=== PATIENT | male | born 1965 | race Caucasian/White ===

== ENCOUNTER 2016-08-13 18:11 | Emergency (ER) | payer OTHER ==
[~2016-08-13] VITALS: Ht 180.3 cm; Wt 146.9 kg
[~2016-08-13 18:11] MED LIST: FLEX10TA PO; PERC5TAB12 PO; Z.0.NO CURRENT MEDS
[2016-08-13 18:20] VITALS: BP 176/92; PULSE 103; RESP 16; TEMP 100.2; O2SAT 96
[2016-08-13] MEDS ORDERED: METF1000 PO (19:49)
[2016-08-13] MEDS ORDERED: DOXY100C PO (19:49)
[2016-08-13] MEDS ORDERED: BACT800T5 PO (19:49)
[2016-08-13] MEDS ORDERED: SODIUM CHLOR 0.9% 1000 ML INJ 1,000 ML IV ONE ×2 (19:56)
[2016-08-13] MEDS ORDERED: SODIUM CHLOR 0.9% 1000 ML INJ 400 ML IV ONE (19:56)
[2016-08-13] MEDS ORDERED: VANCOMYCIN INJ 1,000 MG in SODIUM CHLOR 0.9% 250 ML INJ 250 ML IV STA (19:56)
[2016-08-13] MEDS ORDERED: PIPERACIL-TAZO 4.5 GM PREMIX 100 ML IV STA (19:56)
[2016-08-13] MEDS ORDERED: INSULIN HUMAN REGULAR 1,000 UNITS/10 ML VIAL IV PUSH ONE (20:00)
[2016-08-13] MEDS ORDERED: ACETAMINOPHEN 1000 MG/100 ML VIAL IV ONE (20:00)
[2016-08-13 20:18] LABS: AUTOMATED NEUTROPHIL # 3.9 TH/MM3 (1.8-7.7); BASOPHIL % 0.6 % (0.0-2.0); EOSINOPHIL # 0.2 TH/MM3 (0-0.4); HEMATOCRIT 40.9 % (39.0-51.0); HEMO FLAGS DIFF FINAL; LYMPH % 14.5 % (9.0-44.0); LYMPHOCYTE # 0.8 TH/MM3 (1.0-4.8); MEAN CELL VOLUME 78.8 FL (80.0-100.0); MEAN CORPUSCULAR HEMOGLOBIN 25.5 PG (27.0-34.0); MEAN CORPUSCULAR HGB CONC 32.4 % (32.0-36.0); MONO % 6.7 % (0.0-8.0); NEUT % 75.2 % (16.0-70.0); PLATELET COUNT 190 TH/MM3 (150-450); RED BLOOD COUNT 5.19 MIL/MM3 (4.50-5.90); RED CELL DISTRIBUTION WIDTH 14.1 % (11.6-17.2); WHITE BLOOD COUNT 5.3 TH/MM3 (4.0-11.0)
--- NOTE | 2016-08-13 20:23 | PD ---
HPI Chief Complaint: Skin Problem Time Seen by Provider: 20:15 Travel History International Travel<30 days: No Contact w/Intl Traveler<30days: No Traveled to known affect area: No History of Present Illness HPI The patient is a 51-year-old male that complains of low-grade fever and infection in his back for one week. The patient is a metformin controlled diabetic. On Sunday he was put on Bactrim by an urgent care center and on Sunday doxycycline was added to his regimen area he did not take his metformin for 5 days because he thought it made him nauseated. He states that the urgent care center they stuck a needle in the inflamed area of his back and did not get any pus return. The patient still has his gallbladder but denies any right upper quadrant abdominal pain. The patient has been taking over 2000 mg of Tylenol daily. PFSH Past Medical History Hx Anticoagulant Therapy: No Diabetes: Yes Patient Takes Glucophage: Yes (LAST 799) Diminished Hearing: No Respiratory: No Immunizations Current: Yes Tetanus Vaccination: < 5 Years Influenza Vaccination: No Past Surgical History Other Surgery: Yes (LT FOOT INFECTION) Social History Alcohol Use: Yes (rare) Tobacco Use: No Substance Use: No Allergies-Medications (Allergen,Severity, Reaction): Coded Allergies: No Known Allergies (Unverified , 08/13/16) Reported Meds & Prescriptions Reported Meds & Active Scripts Active Reported Metformin (Metformin HCl) 1,000 Mg Tab 1,000 Mg PO DAILY With a meal Doxycycline Hyclate 100 Mg Cap 100 Mg PO BID Review of Systems Except as stated in HPI: all other systems reviewed are Neg Physical Exam Narrative GENERAL: The patient is alert, obese, oriented 3 in slight apparent distress with his back discomfort. His vital signs show temperature 100.2, blood pressure 176/92, heart rate 103 but are otherwise normal. SKIN: Focused skin assessment warm/dry. There is an indurated area approximately 6-7 cm in diameter on the left upper back. It is indurated but not fluctuant. HEAD: Atraumatic. Normocephalic. EYES: Pupils equal and round. No scleral icterus. No injection or drainage. ENT: No nasal bleeding or discharge. Mucous membranes pink and moist. NECK: Trachea midline. No JVD. CARDIOVASCULAR: Regular rate and rhythm. No murmur appreciated. RESPIRATORY: No accessory muscle use. Clear to auscultation. Breath sounds equal bilaterally. GASTROINTESTINAL: Abdomen soft, non-tender, nondistended. Hepatic and splenic margins not palpable. No guarding or rebound is present. MUSCULOSKELETAL: No obvious deformities. No clubbing. No cyanosis. No edema. NEUROLOGICAL: Awake and alert. No obvious cranial nerve deficits. Motor grossly within normal limits. Normal speech. PSYCHIATRIC: Appropriate mood and affect; insight and judgment normal. Data Data Last Documented VS Vital Signs Date Time Temp Pulse Resp B/P Pulse Ox O2 Delivery O2 Flow Rate FiO2 08/13/16 21:33 98.6 86 20 159/73 97 08/13/16 20:54 Room Air Orders Electrocardiogram (08/13/16 19:56) Complete Blood Count With Diff (08/13/16 19:56) Comprehensive Metabolic Panel (08/13/16 19:56) Prothrombin Time / Inr (Pt) (08/13/16 19:56) Act Partial Throm Time (Ptt) (08/13/16 19:56) Lactic Acid Sepsis Protocol (08/13/16 19:56) Magnesium (Mg) (08/13/16 19:56) Urinalysis - C+S If Indicated (08/13/16 19:56) Blood Culture (08/13/16 19:56) Chest, Single Ap (08/13/16 19:56) Ecg Monitoring (08/13/16 19:56) Iv Access Insert/Monitor (08/13/16 19:56) Oximetry (08/13/16 19:56) Oxygen Administration (08/13/16 19:56) Piperacil-Tazo 4.5 Gm Premix (Zosyn 4.5 (08/13/16 19:56) Vancomycin Inj (Vancomycin Inj) (08/13/16 19:56) Sodium Chlor 0.9% 1000 Ml Inj (Ns 1000 M (08/13/16 19:56) Sodium Chlor 0.9% 1000 Ml Inj (Ns 1000 M (08/13/16 19:56) Sodium Chlor 0.9% 1000 Ml Inj (Ns 1000 M (08/13/16 19:56) Acetaminophen Inj (Ofirmev Inj) (08/13/16 20:00) Blood Glucose (08/13/16 19:56) Blood Glucose (08/13/16 20:56) Insulin Human Regular Inj (Novolin R Inj (08/13/16 20:00) Wound Culture And Gram Stain (08/13/16 20:15) Labs Laboratory Tests Test 08/13/16 08/13/16 19:58 21:47 White Blood Count 5.3 TH/MM3 Red Blood Count 5.19 MIL/MM3 Hemoglobin 13.2 GM/DL Hematocrit 40.9 % Mean Corpuscular Volume 78.8 FL Mean Corpuscular Hemoglobin 25.5 PG Mean Corpuscular Hemoglobin 32.4 % Concent Red Cell Distribution Width 14.1 % Platelet Count 190 TH/MM3 Mean Platelet Volume 7.7 FL Neutrophils (%) (Auto) 75.2 % Lymphocytes (%) (Auto) 14.5 % Monocytes (%) (Auto) 6.7 % Eosinophils (%) (Auto) 3.0 % Basophils (%) (Auto) 0.6 % Neutrophils # (Auto) 3.9 TH/MM3 Lymphocytes # (Auto) 0.8 TH/MM3 Monocytes # (Auto) 0.4 TH/MM3 Eosinophils # (Auto) 0.2 TH/MM3 Basophils # (Auto) 0.0 TH/MM3 CBC Comment DIFF FINAL Differential Comment Prothrombin Time 10.8 SEC Prothromb Time International 1.0 RATIO Ratio Activated Partial 25.2 SEC Thromboplast Time Sodium Level 131 MEQ/L Potassium Level 3.6 MEQ/L Chloride Level 94 MEQ/L Carbon Dioxide Level 26.8 MEQ/L Anion Gap 10 MEQ/L Blood Urea Nitrogen 10 MG/DL Creatinine 0.96 MG/DL Estimat Glomerular Filtration 83 ML/MIN Rate Random Glucose 346 MG/DL Lactic Acid Level 1.3 mmol/L Calcium Level 8.7 MG/DL Magnesium Level 2.4 MG/DL Total Bilirubin 2.4 MG/DL Aspartate Amino Transf 71 U/L (AST/SGOT) Alanine Aminotransferase 87 U/L (ALT/SGPT) Alkaline Phosphatase 370 U/L Total Protein 7.0 GM/DL Albumin 2.9 GM/DL Urine Color YELLOW Urine Turbidity CLEAR Urine pH 5.5 Urine Specific [place] GREATER THAN 1.035 Urine Protein NEG mg/dL Urine Glucose (UA) 1000 OR GREATER mg/dL Urine Ketones 15 mg/dL Urine Occult Blood TRACE Urine Nitrite NEG Urine Bilirubin NEG Urine Leukocyte Esterase NEG Urine RBC 0-3 /hpf Urine WBC /hpf Urine Squamous Epithelial 0-5 /hpf Cells Urine Mucus /lpf Microscopic Urinalysis Comment CULT NOT INDICATED MDM Medical Decision Making Medical Screen Exam Complete: Yes Emergency Medical Condition: Yes Medical Record Reviewed: Yes Interpretation(s) The EKG shows sinus rhythm with PVCs and a rate of [address] elevation or depression. The CBC is normal. The complete metabolic profile shows a sodium of 131, GFR of 83, glucose of 346, total bilirubin of 2.4 with AST of 71 and ALT of 87 and alkaline phosphatase of 370. The urine shows greater than 1.035 specific gravity, 1000 or greater glucose, 15 ketones and trace occult blood. The coagulation profile is normal. The lactic acid is normal. Differential Diagnosis Sepsis, urinary tract infection, electrolyte disorder, hypo-/hyperglycemia, noncompliance to medications, skin infectionabscess, skin infectioncellulitis Narrative Course The patient skin infection appears to be an early abscess but it is not drainable at this time. He does have elevation of his liver enzymes but I have no previous liver function studies to compare with. He is not tender in his right upper quadrant around the gallbladder or liver. He is on excellent antibiotics for a skin infection. He should take his metformin as directed. The patient's blood sugar is 248 one hour after the insulin was given. The patient will have to discontinue Tylenol I will write him a prescription for Motrin. It may be that the Tylenol is causing the liver enzyme elevation. Sepsis Criteria SIRS Criteria (2 or more): Heart rate over 90 Physician Communication Physician Communication As we discussed, you need to follow-up with a primary care physician. You will also need to take the metformin as prescribed. We will give you Phenergan for nausea. Discontinue the Tylenol as it may be causing the elevation in your liver enzymes. Diagnosis Primary Impression: Skin infection Additional Impressions: Poorly controlled diabetes mellitus Noncompliance with medication regimen Acetaminophen toxicity Additional Instructions: As we discussed, fine a primary care physician. In the meantime, we will be glad to see you again if you get worse or have problems. Med/Other Pt SpecificInfo: Prescription(s) given Scripts Promethazine (Phenergan)25 Mg Tab25 Mg PO Q6H PRN (Nausea/Vomiting) #30 TAB Ref 0 Prov:Mayur Foster MD 08/13/16 Disposition: 01 DISCHARGE HOME Condition: Stable Mayur Foster MD August 13, 2016 20:23
[2016-08-13 20:25] LABS: CHLORIDE 94 MEQ/L (98-107); POTASSIUM 3.6 MEQ/L (3.5-5.1); SODIUM (NA) 131 MEQ/L (136-145)
[2016-08-13 20:28] LABS: ANION GAP 10 MEQ/L (5-15); BICARBONATE 26.8 MEQ/L (21.0-32.0); MAGNESIUM 2.4 MG/DL (1.5-2.5)
[2016-08-13 20:29] LABS: BLOOD UREA NITROGEN 10 MG/DL (7-18)
[2016-08-13 20:30] LABS: APTT (PATIENT) 25.2 SEC (24.3-30.1); PROTHROMBIN TIME - PATIENT 10.8 SEC (9.8-11.6)
[2016-08-13 20:31] LABS: ALT (GPT) 87 U/L (12-78)
[2016-08-13 20:32] LABS: AST (GOT) 71 U/L (15-37); GLOMERULAR FILTRATION RATE 83 ML/MIN (>89)
[2016-08-13 20:33] LABS: TOTAL BILIRUBIN ADULT 2.4 MG/DL (0.2-1.0)
[2016-08-13 20:34] LABS: ALKALINE PHOSPHATASE 370 U/L (45-117)
[2016-08-13 20:52] VITALS: O2SAT 98
[2016-08-13 20:54] VITALS: BP 155/88; PULSE 83; O2SAT 98
--- NOTE | 2016-08-13 21:11 | RADHPO ---
EXAM DATE/TIME: 08/13/2016 21:01 [facility] COMPARISON: No previous studies available for comparison. INDICATIONS : Fever. MEDICAL HISTORY : None. SURGICAL HISTORY : None. ENCOUNTER: Initial ACUITY: 2 days PAIN SCORE: 6/10 LOCATION: Bilateral chest FINDINGS: A single view of the chest demonstrates the lungs to be symmetrically aerated without evidence of mas s, infiltrate or effusion. The cardiomediastinal contours are unremarkable. Osseous structures are intact. CONCLUSION: No acute disease. Enrique Patrick MD FACR on August 13, 2016 at 21:09 Board Certified Radiologist. This report was verified electronically.
[2016-08-13 21:33] VITALS: BP 159/73; PULSE 86; RESP 20; TEMP 98.6; O2SAT 97
[2016-08-13 21:59] LABS: BLOOD, URINE TRACE (NEG); KETONE, URINE 15 mg/dL (NEG); NITRITE,URINE NEG (NEG); PH, URINE 5.5 (5.0-8.5)
[2016-08-13 22:19] LABS: GLUCOSE,URINE 1000 OR GREATER mg/dL (NEG)
[2016-08-13 22:20] LABS: URINE COLOR YELLOW (YELLW/STRAW)
[2016-08-13 22:21] LABS: SQUAMOUS EPITHELIAL CELL URINE 0-5 /hpf (0-5)
[2016-08-13 22:22] LABS: RBC, URINE 0-3 /hpf (0-3)
[2016-08-13 22:23] LABS: COMMENT (UR) CULT NOT INDICATED; CULTURE IF INDICATED CULT NOT INDICATED
[2016-08-13] MEDS ORDERED: PROM25TA5 PO (23:07)
[2016-08-13] MEDS ORDERED: VANCOMYCIN INJ 1,750 MG in SODIUM CHLORID 0.9% 500 ML INJ 500 ML IV ONE (23:15)
[2016-08-13 23:17] VITALS: BP 159/78; PULSE 88; RESP 20; O2SAT 99
[2016-08-13] MEDS ORDERED: VANCOMYCIN INJ 750 MG in SODIUM CHLOR 0.9% 250 ML INJ 250 ML IV ONE (23:30)
[2016-08-14 00:21] VITALS: BP 155/83; TEMP 97.8
--- NOTE | 2016-08-14 14:50 | EKG ---
Date Performed: 08/13/2016 Time Performed: 20:03:22 PTAGE: 51 years EKG: Sinus rhythm with PVC(s). Borderline ECG NO PREVIOUS TRACING DOCTOR: Steven Wright Interpretating Date/Time 08/14/2016 14:43:54
== END 2016-08-14 00:32 | disposition home or self-care (01) ==
LOC: PHED 18:11
DX: L08.9 Local infection of the skin and subcutaneous tissue, unspecified (principal); E11.65 Type 2 diabetes mellitus with hyperglycemia; T39.1X5A Adverse effect of 4-Aminophenol derivatives, initial encounter; R74.8 Abnormal levels of other serum enzymes; R94.31 Abnormal electrocardiogram [ECG] [EKG]; Z91.14 Patient's other noncompliance with medication regimen; Z79.84 Long term (current) use of oral hypoglycemic drugs
CPT/HCPCS: 71010; 80053; 81001; 83605; 83735; 85025; 85610; 85730; 87040; 87070; 93005; 96365; 96366; 96367; 96375; 99285; J0131; J1815; J2543; J3370; J7030; J7050; 87205